=== PATIENT | male | born 1940 | race Two or more races ===

== ENCOUNTER 2021-04-18 10:15 | Inpatient (IN) | payer MEDICARE, OTHER ==
[~2021-04-18] VITALS: Ht 147.3 cm; Wt 59.0 kg
--- NOTE | 2021-04-18 10:42 | NUR ---
BIB Son From Home"Abdominal pain/nausea/vomiting started early am" Patient a/ox4, suleiman speaking, friend at bedside for translation. Changed into a gown. Attached to the manager of applications development.
--- NOTE | 2021-04-18 11:00 | NUR ---
DR. CADET AT BEDSIDE FOR EVAL
--- NOTE | 2021-04-18 11:10 | NUR ---
CONTACT LALO FRIEND [phone] FOR UPDATES
[2021-04-18] MEDS ORDERED: ONDANSETRON HCL/PF 4 MG/2 ML VIAL ONE (11:13)
[2021-04-18 11:14] LABS: BASOPHILS % (AUTO) 0.5 % (0.0-2.0); EOSINOPHILS % (AUTO) 0.4 % (0.0-6.0); HEMATOCRIT 43 % (33-45); HEMOGLOBIN 14.6 g/dL (11.5-14.8); LYMPHOCYTES # (AUTO) 1.4 K/uL (0.8-4.8); LYMPHOCYTES % (AUTO) 17.6 % (20.0-44.0); MEAN CORPUSCULAR HGB CONC 34 g/dl (31.0-36.0); MEAN CORPUSCULAR VOLUME 90 fL (82-100); MONOCYTES # (AUTO) 0.4 K/uL (0.1-1.30); MONOCYTES % (AUTO) 5.4 % (2.0-12.0); NEUTROPHILS % (AUTO) 76.1 % (43.0-81.0); PLATELET COUNT (AUTO) 248 K/uL (150-450); RED BLOOD CELL COUNT(AUTO) 4.78 MIL/uL (4.0-5.2); WHITE BLOOD COUNT (AUTO) 7.8 K/uL (4.3-11.0)
[2021-04-18 11:21] LABS: CALCIUM, SERUM 9.6 mg/dL (8.5-10.1); CARBON DIOXIDE 25 mmol/L (21-32); CHLORIDE 107 mmol/L (98-107); CREATININE 1.5 mg/dL (0.6-1.3); GLUCOSE 118 mg/dL (74-106); POTASSIUM 4.6 mmol/L (3.5-5.1); SODIUM SERUM 143 mmol/L (136-145); UREA NITROGEN, BLOOD 28 mg/dL (7-18)
[2021-04-18 11:27] LABS: ALANINE AMINOTRANSFERASE 27 U/L (12-78); ALBUMIN 3.8 g/dL (3.4-5.0); ALKALINE PHOSPHATASE 78 U/L (46-116); ASPARTATE AMINOTRANSFERASE 21 U/L (15-37); BILIRUBIN,DIRECT 0.1 mg/dL (0.0-0.2); BILIRUBIN,TOTAL 0.4 mg/dL (0.2-1.0); LIPASE 140 U/L (73-393); TOTAL PROTEIN, SERUM 7.9 g/dL (6.4-8.2)
[2021-04-18] MEDS ORDERED: IV NS 0.9% 500 ML BAG IV ONE (11:30)
[2021-04-18] MEDS ORDERED: ONDANSETRON HCL/PF 4 MG/2 ML VIAL IVP ONE (11:30)
--- NOTE | 2021-04-18 13:26 | NUR ---
DR. PERDOMO SPEAKING WITH DR. CADET
[2021-04-18] MEDS ORDERED: DIATR MEGLU/DIATRIZOATE SODIUM 120 ML BOTTLE (GASTROGRAPHIN) ONE (13:40)
[2021-04-18] MEDS ORDERED: FEBU40TA3 PO (14:01)
[2021-04-18] MEDS ORDERED: LEVO-148 PO (14:01)
[2021-04-18] MEDS ORDERED: TAMS-12 PO (14:01)
[2021-04-18] MEDS ORDERED: NIFE-34 PO (14:01)
[2021-04-18] MEDS ORDERED: ALEN70TA80 PO (14:01)
[2021-04-18] MEDS ORDERED: CLON0.1T PO (14:01)
[2021-04-18] MEDS ORDERED: ESCI20TA PO (14:01)
--- NOTE | 2021-04-18 14:01 | NUR ---
MOVE SHEET SUBMITTED AND CALLED FOR BED.
[2021-04-18] MEDS ORDERED: hydrALAZINE HCL IV 20 MG VIAL IV PRN (15:00)
[2021-04-18] MEDS ORDERED: CLONIDINE HCL 0.1 MG TABLET PO PRN (15:00)
[2021-04-18] MEDS ORDERED: MAGNESIUM HYDROXIDE 30 ML UDC PO PRN (15:00)
[2021-04-18] MEDS ORDERED: ACETAMINOPHEN 325 MG TABLET PO PRN (15:00)
[2021-04-18] MEDS ORDERED: ONDANSETRON HCL/PF 4 MG/2 ML VIAL IVP PRN (15:00)
[2021-04-18] MEDS ORDERED: MORPHINE SULFATE INJ 2 MG/ML DISP.SYRIN IV PRN (15:00)
[2021-04-18] MEDS ORDERED: Z GUARD REMEDY 2 OZ OINT TP PRN (15:00)
[2021-04-18] MEDS ORDERED: MAG HYDROX/AL HYDROX/SIMETH 30 ML UDC PO PRN (15:00)
--- NOTE | 2021-04-18 16:21 | NUR ---
BED 310-1
--- NOTE | 2021-04-18 16:28 | NUR ---
REPORT GIVEN TO ELIANA SIGNER FOR CINDY.
--- NOTE | 2021-04-18 16:52 | NUR ---
PATIENT TRANSFERRED TO ROOM 310, IN STABLE CONDITION. NEEDS ATTENDED.
[2021-04-18 17:00] VITALS: BP 150/61
--- NOTE | 2021-04-18 17:00 | NUR ---
PT. MADE COMFORTABLE IN NO ACUTE DISTRESS.VS STABLE.HOB ELEVATED. NO COMPLAINTS OFFERED.SHORTLY AFTER INVENTORY OF VALUABLES DONE,FRIEND ARRIVED AND TOOK [facility] WITH [facility].NAME OF FRIEND MAY AND NO. ON FRONT OF CHART.ADDITIONALLY STATES HE WILL BRING BACK MED BOTTLES TO ASSURE THAT WE HAVE A COMPLTE LIST.REMAINS NPO.
[2021-04-18] MEDS: IV D5/0.45 NACL 1,000 ML IV PRN (18:00)
--- NOTE | 2021-04-18 18:00 | NUR ---
IV INFUSING,CALL PEARSON WITHIN REACH.SIDE RAILS UP.
[2021-04-18] MEDS: NIFEdipine XL (30MG) 30 MG TAB PO SCH (18:20)
--- NOTE | 2021-04-18 19:48 | NUR ---
MS RN OPENING NOTES: RECEIVED PATIENT AWAKE IN BED, BED IN LOW POSITION, CALL LIGHTS WITHIN REACH, NO COMPLAIN OF PAIN AND DISCOMFORT AT THIS TIME , WITH IV LINE AT LAC#18 WITH IV LINE D5LR 1/2 NSS INFUSING WELL, PATIENT IS AMBULATORY, FARSI SPEAKING, ALL NEEDS MET, WILL CONTINUE TO MONITOR.
[2021-04-18 20:00] VITALS: BP 151/67
[2021-04-18] MEDS: TAMSULOSIN 0.4 MG CAP.SR.24H PO SCH (22:10)
[2021-04-19 06:02] LABS: BASOPHILS % (AUTO) 0.3 % (0.0-2.0); EOSINOPHILS % (AUTO) 2.2 % (0.0-6.0); HEMATOCRIT 39 % (39-51); HEMOGLOBIN 13.3 g/dL (13.5-17.5); LYMPHOCYTES # (AUTO) 2.8 K/uL (0.8-4.8); LYMPHOCYTES % (AUTO) 39.6 % (20.0-44.0); MEAN CORPUSCULAR HGB CONC 34 g/dl (31.0-36.0); MEAN CORPUSCULAR VOLUME 91 fL (80-96); MONOCYTES # (AUTO) 0.5 K/uL (0.1-1.30); MONOCYTES % (AUTO) 7.5 % (2.0-12.0); NEUTROPHILS # (AUTO) 3.5 K/uL (1.8-8.9); NEUTROPHILS % (AUTO) 50.4 % (43.0-81.0); PLATELET COUNT (AUTO) 233 K/uL (150-450); RED BLOOD CELL COUNT(AUTO) 4.32 MIL/uL (4.5-6.0)
--- NOTE | 2021-04-19 06:12 | NUR ---
MS RN CLOSING NOTES: PATIENT SLEEP IN BED COMFORTABLY, BED IN LOW POSITION, CALL LIGHTS WITHIN REACH, NOM COMPLAIN OF PAIN AND DISCOMFORT AT THIS TIME, PATIENT IS A/OX3. FARSI SPEAKING, AMBULATORY WITH SUPERVISION, WITH IV LINE AT LAC#18 ON D5 / NSS@75ML/HR INFUSING WELL. PATIENT KEPT CLEAN AN DRY ALL NEEDS MET, ENDORSE TO INCOMING SHIFT.
[2021-04-19 07:31] LABS: ALANINE AMINOTRANSFERASE 21 U/L (12-78); ALBUMIN 3.2 g/dL (3.4-5.0); ALKALINE PHOSPHATASE 69 U/L (46-116); ASPARTATE AMINOTRANSFERASE 22 U/L (15-37); BILIRUBIN,DIRECT 0.2 mg/dL (0.0-0.2); BILIRUBIN,TOTAL 0.7 mg/dL (0.2-1.0); CALCIUM, SERUM 8.8 mg/dL (8.5-10.1); CARBON DIOXIDE 26 mmol/L (21-32); CHLORIDE 108 mmol/L (98-107); CREATININE 1.4 mg/dL (0.6-1.3); GLUCOSE 96 mg/dL (74-106); MAGNESIUM 1.9 mg/dL (1.8-2.4); PHOSPHORUS 3.1 mg/dL (2.5-4.9); POTASSIUM 4.2 mmol/L (3.5-5.1); SODIUM SERUM 141 mmol/L (136-145); TOTAL PROTEIN, SERUM 6.9 g/dL (6.4-8.2); UREA NITROGEN, BLOOD 18 mg/dL (7-18)
--- NOTE | 2021-04-19 07:34 | NUR ---
RN OPENING NOTE- PATIENT AWAKE IN BED, BED IN LOW POSITION, CALL LIGHTS WITHIN REACH, NO COMPLAIN OF PAIN AND DISCOMFORT AT THIS TIME , WITH IV LINE AT LAC#18 WITH IV LINE D5LR 1/2 NSS INFUSING WELL, PATIENT IS AMBULATORY, FARSI SPEAKING, ALL NEEDS MET, WILL CONTINUE TO MONITOR.
[2021-04-19 08:00] VITALS: BP_SYST 152; BP_SYST 153; BP_DIAS 66; BP_DIAS 69
[2021-04-19] MEDS: LEVOTHYROXINE SODIUM 125 MCG TABLET PO SCH (08:02)
[2021-04-19] MEDS ORDERED: Medication Not On Formulary EA (Febuxostat 40 MG) PO SCH (09:00)
[2021-04-19] MEDS: ESCITALOPRAM OXALATE (10 MG) 10 MG TABLET PO SCH (09:17)
[2021-04-19] MEDS: NIFEdipine XL (30MG) 30 MG TAB PO SCH ×2 (09:17→16:50)
--- NOTE | 2021-04-19 09:30 | NUR ---
RN NOTE- PT ADVANCED TO CLEAR LIQUID DIET
[2021-04-19 16:00] VITALS: BP 157/62
--- NOTE | 2021-04-19 18:43 | NUR ---
RN CLOSING NOTE- PT IN BED, IN LOW POSITION, CALL LIGHT WITHIN REACH, NO COMPLAINT OF PAIN AT THIS TIME, PATIENT IS A/OX3. FARSI SPEAKING, AMBULATORY WITH SUPERVISION, WITH IV LINE AT LAC#18 ON D5 / NSS@75ML/HR INFUSING WELL. PATIENT KEPT CLEAN AN DRY ALL NEEDS MET, ENDORSE TO INCOMING SHIFT.
--- NOTE | 2021-04-19 19:16 | NUR ---
MS RN OPENING NOTES: RECEIVED PATIENT PLACED IN BED COMFORTABLY, BED IN LOW POSITION, CALL LIGHTS WITHIN REACH, NO COMPLAIN OF PAIN AND DISCOMFORT AT THIS TIME, A/O X3 AMBULATORY WITH SUPERVISION, PATIENT WITH IV LINE AT LAC#18 ON D5 1/2 NSS@75ML/HR INFUSING WELL. PATIENT KEPT CLEAN AND DRY, ALL NEEDS MET, WILL CONTINUE TO MONITOR.
[2021-04-19 20:00] VITALS: BP 138/62
[2021-04-19] MEDS: TAMSULOSIN 0.4 MG CAP.SR.24H PO SCH (22:08)
[2021-04-20] MEDS: IV D5/0.45 NACL 1,000 ML IV PRN (01:16)
--- NOTE | 2021-04-20 06:18 | NUR ---
MS RN CLOSING NOTES: PATIENT SLEEP IN BED COMFORTABLY, BED IN LOW POSITION, CALL LIGHTS WITHIN REACH, NO COMPLAIN OF PAIN AND DISCOMFORT AT THIS TIME, PATIENT IS A/OX3 FARSI SPEAKING , AMBULATORY WITH SUPERVISION, WITH IV LINE AT LAC #18 ON D5 / NSS@ 75ML/HR INFUSING WELL, NO SOB NOTED, PATIENT KEPT CLEAN AND DRY , ALL NEEDS MET, ENDORSE TO INCOMING SHIFT.
[2021-04-20 06:31] LABS: BASOPHILS % (AUTO) 0.6 % (0.0-2.0); EOSINOPHILS % (AUTO) 2.9 % (0.0-6.0); HEMATOCRIT 38 % (39-51); HEMOGLOBIN 12.7 g/dL (13.5-17.5); LYMPHOCYTES # (AUTO) 2.9 K/uL (0.8-4.8); LYMPHOCYTES % (AUTO) 41.5 % (20.0-44.0); MEAN CORPUSCULAR HGB CONC 34 g/dl (31.0-36.0); MEAN CORPUSCULAR VOLUME 90 fL (80-96); MONOCYTES # (AUTO) 0.5 K/uL (0.1-1.30); MONOCYTES % (AUTO) 6.8 % (2.0-12.0); NEUTROPHILS # (AUTO) 3.4 K/uL (1.8-8.9); NEUTROPHILS % (AUTO) 48.2 % (43.0-81.0); PLATELET COUNT (AUTO) 217 K/uL (150-450); RED BLOOD CELL COUNT(AUTO) 4.17 MIL/uL (4.5-6.0)
--- NOTE | 2021-04-20 07:10 | NUR ---
MS RN OPENING NOTE RECEIVED PATIENT AWAKE IN BED. PATIENT IS A/O X 4. PATIENT ON ROOM AIR, WITH NO SIGNS OF RESPIRATORY DISTRESS. ON MONDERATE TO HIGH BACK REST. WITH IV ACCESS ON THE LEFT AC G18 WITH ONGOING IVF OF D5 1/2 NS AT 75ML/HR INFUSING WELL. COMFORT MEASURES PROVIDED. WITH BED ON LOWEST AND LOCKED POSITION. CALL LIGHT AND BEDSIDE TABLE WITHIN REACH AT ALL TIMES. WILL CONTINUE TO MONITOR PATIENT.
[2021-04-20 07:50] LABS: BILIRUBIN,TOTAL 0.6 mg/dL (0.2-1.0); CALCIUM, SERUM 8.7 mg/dL (8.5-10.1); CREATININE 1.3 mg/dL (0.6-1.3); MAGNESIUM 1.6 mg/dL (1.8-2.4); PHOSPHORUS 3.1 mg/dL (2.5-4.9); POTASSIUM 3.6 mmol/L (3.5-5.1); TOTAL PROTEIN, SERUM 6.5 g/dL (6.4-8.2)
[2021-04-20 08:00] VITALS: BP 142/65
[2021-04-20] MEDS: LEVOTHYROXINE SODIUM 125 MCG TABLET PO SCH (08:29)
[2021-04-20] MEDS: ESCITALOPRAM OXALATE (10 MG) 10 MG TABLET PO SCH (08:45)
[2021-04-20 08:46] VITALS: BP 142/65
[2021-04-20] MEDS: NIFEdipine XL (30MG) 30 MG TAB PO SCH (08:46)
[2021-04-20] MEDS: Magnesium 1GM/D5W 100ML PREMIX 100 ML IV SCH ×2 (09:45→10:45)
--- NOTE | 2021-04-20 10:30 | NUR ---
MS RN NOTE PATIENT SEEN BY DR. HE WITH ORDER TO DISCHARGE PATIENT. PATIENT VERBALIZED UNDERSTANDING OF DISCHARGE INSTRUCTIONS WITH THE HELP OF [id number] THERAPIST JUDAH. COMFORT MEASURES PROVIDED. WILL CONTINUE TO MONITOR PATIENT.
--- NOTE | 2021-04-20 12:45 | NUR ---
MS RN NOTE PATIENT DISCHARGED ORDERED. IN STABLE CONDITION. IV DISCONTINUED AND COVERED WITH DRY DRESSING, TOLERATED WELL. NOT IN DISTRESS. ACCOMPANIED BY NURSE TO LOBBY. PATIENT PICKED UP BY SON AND INSTRUCTIONS REPEATED AND VERBALIZED UNDERSTANDIGN AND APPRECIATION. IN STABLE CONDITION. ENDORSED ACCORDINGLY.
== END 2021-04-20 12:37 | disposition home or self-care (01) | DRG 388 ==
LOC: ER 10:21 → EDSEX 10:21 → TELE 16:29 → MED 16:40
PROVIDERS: ADMIT Internal Medicine; ATTEND Internal Medicine
DX: K56.7 Ileus, unspecified (principal); E43 Unspecified severe protein-calorie malnutrition; N17.0 Acute kidney failure with tubular necrosis; Z20.822 Contact with and (suspected) exposure to COVID-19; I10 Essential (primary) hypertension; N40.0 Benign prostatic hyperplasia without lower urinary tract symptoms; E78.5 Hyperlipidemia, unspecified; M81.0 Age-related osteoporosis without current pathological fracture; E03.9 Hypothyroidism, unspecified; K40.90 Unilateral inguinal hernia, without obstruction or gangrene, not specified as recurrent; K44.9 Diaphragmatic hernia without obstruction or gangrene; K57.90 Diverticulosis of intestine, part unspecified, without perforation or abscess without bleeding
CPT/HCPCS: 36415; 74250-TC; 76770-TC; 80048-TC; 80053-TC; 80076-TC; 83690-TC; 83735-TC; 84100-TC; 84484-TC; 85025-TC; 85730-TC; 86850-TC; 87081-TC; C9803; G0378; J2405; J3475; J3490; J7030; J7040; Q9963